=== PATIENT | female | born 1990 | race Caucasian/White ===

== ENCOUNTER 2018-11-07 10:42 | Inpatient (IN) ==
--- NOTE | 2018-11-07 09:46 | P.HPOB ---
History of Present Illness Service: ob Primary Care Physician: UNKNOWN Chief Complaint: elecive primary cd History of Present Illness: 28 yo G1 with iup at 39w5d being admitted for elective primary cd. Discussed risks of vaginal delivery and cd. She is aware that there are increased risks with cd but desires to have primary cd. We have been discussing this throughout third trimester and desires to proceed with primary cd. She has good fm, neg ctx or vb. pnc c/b abn 1 hour, normal 3 hourGTT, Anxiety, Rubella Non-immune. PMH: anxiety PSH: hernia repair, wisdom teeth extraction NKDA FamHx: no genetic d/o or defects : 1 - Inpatient Certification I certify that the inpatient services were ordered in accordance with Medicare regulations governing the order. This includes certification that hospital inpatient services are reasonable and necessary and in the case of services not specified as inpatient-only under 42 CFR 419.22(n), that they are appropriately provided as inpatient services in accordance to with the 2-midnight benchmark under 43 CFR 412.3(e) Plans for Post Hospital Care: Home Review of Systems All other systems reviewed negative except as stated in HPI Exam - Constitutional no acute distress - Routine HEENT Exam Head: Present: normocephalic - Routine Neck Exam Present: full ROM - Routine Respiratory Exam Absent: accessory muscle use - Routine Cardiovascular Exam Present: RRR - Routine Abdominal Exam Present: soft (gravid) - Routine Extremities Exam Absent: cyanosis, clubbing, edema - Routine Neurological Exam Present: alert, oriented X3 Results - Labs Group B Strep: Negative Caprini VTE Risk Assessment Caprini VTE Risk Assessment: No/Low Risk (score <= 1) Caprini Risk Assessment Model: Point Value = 1 Point Value = 2 Point Value = 3 Point Value = 5 Age 41-60 Minor surgery BMI > 25 kg/m2 Swollen legs Varicose veins or History of unexplained or recurrent spontaneous Oral contraceptives or hormone replacement Sepsis (< 1 month) Serious lung disease, including pneumonia (< 1 month) Abnormal pulmonary function Acute myocardial infarction Congestive heart failure (< 1 month) History of inflammatory bowel disease Medical patient at bed rest Age 61-74 Arthroscopic surgery Major open surgery (> 45 min) Laparoscopic surgery (> 45 min) Malignancy Confined to bed (> 72 hours) Immobilizing plaster cast Central venous access Age >= 75 History of VTE Family history of VTE Factor V Leiden Prothrombin [id number] Lupus anticoagulant Anticardiolipin antibodies Elevated serum homocysteine Heparin-induced thrombocytopenia Other congenital or acquired thrombophilia Stroke (< 1 month) Elective arthroplasty Hip, pelvis, or leg fracture Acute spinal cord injury (< 1 month) Prophylaxis Regimen: Total Risk Factor Score Risk Level Prophylaxis Regimen 0-1 Low Early ambulation 2 Moderate Order ONE of the following: *Sequential Compression Device (SCD) *Heparin 5000 units SQ BID 3-4 Higher Order ONE of the following medications: *Heparin 5000 units SQ TID *Enoxaparin/Lovenox 40 mg SQ daily (WT < 150 kg, CrCl > 30 mL/min) *Enoxaparin/Lovenox 30 mg SQ daily (WT < 150 kg, CrCl > 10-29 mL/min) *Enoxaparin/Lovenox 30 mg SQ BID (WT < 150 kg, CrCl > 30 mL/min) AND/OR *Sequential Compression Device (SCD) 5 or more Highest Order ONE of the following medications: *Heparin 5000 units SQ TID (Preferred with Epidurals) *Enoxaparin/Lovenox 40 mg SQ daily (WT < 150 kg, CrCl > 30 mL/min) *Enoxaparin/Lovenox 30 mg SQ daily (WT < 150 kg, CrCl > 10-29 mL/min) *Enoxaparin/Lovenox 30 mg SQ BID (WT < 150 kg, CrCl > 30 mL/min) AND *Sequential Compression Device (SCD) Assessment and Plan - Diagnosis (1) 39 weeks gestation of Code(s): Z3A.39 - 39 weeks gestation of Status: Acute (2) Anxiety Code(s): F41.9 - Anxiety disorder, unspecified Status: Acute - Plan 28 yo G0 with iup at 39w6d here for elective primary cd Consents signed and reviewed in office. GBS neg Anxiety- vistaril Abn 1 hour, normal 3 hr gtt Rubella Non-immune- vaccine pp
[2018-11-07] MEDS ORDERED: ceFAZolin 2 GM Premix Inj 2 GM/50 ML PIGGYBACK IV.SIG PRN (10:54)
[2018-11-07] MEDS ORDERED: Citric Acid/Sodium Citrate Liq 30 ML UDC PO SCH (11:00)
[2018-11-07] MEDS ORDERED: Influenza (Quadrivalent) Vaccine 0.5 ML Syringe IM ONE (11:15)
[2018-11-07 11:19] LABS: Baso # (Auto) 0.1 th/mm3 (0.0-0.2); Baso % (Auto) 0.6 % (0.0-2.0); Eos # (Auto) 0.1 th/mm3 (0.0-0.4); Eos % (Auto) 0.6 % (0.0-4.0); Hematocrit 38.1 % (35.0-46.0); Hemoglobin 13.1 gm/dL (11.6-15.3); Lymph # (Auto) 2.4 th/mm3 (1.0-4.8); Lymph % (Auto) 25.4 % (9.0-44.0); Mean Corpuscular HGB Conc 34.3 % (32.0-36.0); Mean Corpuscular Hemoglobin 30.4 pg (27.0-34.0); Mean Corpuscular Volume 88.7 fL (80.0-100.0); Mean Platelet Volume 8.7 fL (7.0-11.0); Mono # (Auto) 0.7 th/mm3 (0.0-0.9); Mono % (Auto) 7.3 % (0.0-8.0); Neut # (Auto) 6.1 th/mm3 (1.8-7.7); Neut % (Auto) 66.1 % (16.0-70.0); Platelet Count 254 th/mm3 (150-450); Red Cell Distribution Width 14.8 % (11.6-17.2); White Blood Count 9.3 th/mm3 (4.0-11.0)
[2018-11-07 11:24] LABS: Bacteria,Urine Many /hpf; Bilirubin,Urine Negative (Negative); Clarity,Urine Cloudy (Clear); Color,Urine Yellow (Yellw/Straw); Glucose,Urine (UA) Negative (Negative); Leukocyte Esterase,Urine Large (Negative); Mucus,Urine Few /lpf (Occasional); Nitrite,Urine Negative (Negative); Specific Gravity,Urine 1.016 (1.002-1.035); Squamous Epithelial Cell,Urine 35 /hpf (0-5)
[2018-11-07 11:28] LABS: Amphetamine Urine With Conf Neg (Neg); Benzodiazepine Urine With Conf Neg (Neg); Cocaine Urine With Conf Neg (Neg); Opiates Urine With Conf Neg (Neg)
[2018-11-07 11:45] LABS: Cannabinoid Urine With Conf Neg (Neg)
[2018-11-07] MEDS ORDERED: Morphine Sulfate PF Inj 5 MG/10 ML Ampul ONE (11:52)
[2018-11-07] MEDS ORDERED: Zolpidem Tartrate 5 MG Tablet PO PRN (13:23)
[2018-11-07] MEDS ORDERED: Simethicone 80 MG Chew Tablet PO PRN (13:23)
--- NOTE | 2018-11-07 13:31 | P.OBDELI ---
Procedure Note - Pre Op Diagnosis (1) 39 weeks gestation of (2) Anxiety - Post Op Diagnosis (1) 39 weeks gestation of (2) Anxiety Performed by: Shweta Mckeon MD Procedure: Primary Low Transverse Section (vacuum assisted ) Indication for Delivery: Other (elective primary) Informed Consent Obtained: For anesthesia, For procedure Confirmed Correct: Patient, Procedure, Site, Time-out taken Anesthesia: Spinal Medication Prior to Procedure: As documented in eMAR Monitoring During Procedure: Blood pressure monitoring, Pulse oximetry Urinary Catheter: Inserted using sterile technique, To dependent drainage, ml urine output (150) Sterile Preparation: Duraprep, With drapes to expose affected area Position: Supine with wedge to right side, Supine with safety belt applied - Operative Features Uterine Incision: Low transverse w/knife / blunt ext Membranes Ruptured: Artificially, Amount of liquid (copious), Appearance of fluid (cl) Presentation: Compound (left arm, head OT) Status of Infant: Viable, Cord blood, Nursery present Placenta Delivered: Intact Medications: Antibiotics, Oxytocin Estimated blood loss (mL): 900 Procedure Tolerated: Well Maternal Condition: Stable Baby Condition: Stable Procedure in Detail: Indication: Desired primary cd Intraoperative findings: Normal uterus, tubes and ovaries. Nuchal cord x 1 Complications: none Counts: Correct x 3 Specimens: cord blood Dispo: to pac[facility] Procedure in detail: After review of informed consent, pt was taken to the OR where spinal anesthesia was performed w/o complication. She was placed in a dorsal supine position with a slight left lateral tilt. She had enrique placed in sterile fashion. SCDs to bilateral extremities. Preoperative antibiotics given preincision. Abdomen and perineum were prepped and draped in sterile fashion. A Pfannenstiel skin incision was made with the scalpel and carried down to the underlying layer of fascia with the bovie. The fascia was incised in the midline; this incision was extended bilaterally w Ng scissors. The superior edge, followed by the inferior edge, of the fascia was grasped with steve clamps, elevated and from the rectus muscles with ng scissors and bluntly. The rectus muscles were in the midline with the hemostat. Peritoneum was entered bluntly and this incision was extended to allow for good visualization of the lower uterine segment. Bladder blade was inserted. A bladder flap was created with Metzenbaum scissors and further developed digitally. The bladder blade was then replaced. A low transverse uterine incision was made with the scalpel and extended bluntly in a cephalocaudal fashion. Clear amniotic fluid noted. The head was flexed and brought to the level of the hysterotomy. Fundal pressure and vacuum x 1 was used to deliver the head, the rest of the body readily followed with fundal pressure. There was a compound arm and cord around neck was reduced. Viable female . Delayed cord clamping of 30 seconds was performed. Baby was handed off to team. Cord blood was collected. IV infusion of pitocin was started immediately after the delivery of the . The placenta was delivered w gentle cord traction and uterine massage. The uterus was exteriorized. The uterine cavity was cleared with moistened laparotomy sponges. The uterus was repaired in two layers with number 1 chromic in a running locked fashion followed by an imbricating layer. The posterior cul de sac was irrigated and suctioned. The uterus was noted to be hemostatic. It was returned to the abdomen. The anterior cul-de-sac was irrigated and suctioned. The peritoneum was closed with 2-0 chromic in a running fashion. The fascia was closed with number 1 vicryl in a running fashion. Subcutaneous tissue was irrigated and hemostasis obtained w the bovie. The subcutaneous tissue was brought together with 2-0 chromic in a running fashion. The skin was closed with 3-0 monocryl in a subcuticular fashion. A sterile pressure dressing was placed. PT was sent to pacu in stable condition. - Infant : Female Infant Female A Infant Delivery Date: 11/07/18 Infant Delivery Time: 12:25 Weight: 2.835 kg Delivery of : Assisted (vacuum x 1) score (1 min): 8 score (5 min): 9
[2018-11-07] MEDS ORDERED: Oxytocin 30 Units/500ml Premix 30 UNITS/500 ML BAG ONE (13:39)
[2018-11-07] MEDS ORDERED: Oxytocin 30 Units/500ml Premix 30 UNITS/500 ML BAG IV.SIG ONE (14:30)
[2018-11-07] MEDS ORDERED: Naloxone Inj 0.4 MG/ML Vial IV.PUSH PRN (14:51)
[2018-11-07] MEDS ORDERED: Oxytocin 30 Units/500ml Premix 30 UNITS/500 ML BAG IV.SIG PRN (18:23)
[2018-11-08 05:48] LABS: Baso % (Auto) 0.3 % (0.0-2.0); Eos % (Auto) 0.1 % (0.0-4.0); Hematocrit 28.2 % (35.0-46.0); Hemoglobin 9.5 gm/dL (11.6-15.3); Lymph # (Auto) 2.2 th/mm3 (1.0-4.8); Lymph % (Auto) 21.1 % (9.0-44.0); Mean Corpuscular HGB Conc 33.8 % (32.0-36.0); Mean Corpuscular Hemoglobin 29.9 pg (27.0-34.0); Mean Corpuscular Volume 88.5 fL (80.0-100.0); Mean Platelet Volume 8.6 fL (7.0-11.0); Mono # (Auto) 0.9 th/mm3 (0.0-0.9); Mono % (Auto) 8.3 % (0.0-8.0); Neut # (Auto) 7.4 th/mm3 (1.8-7.7); Neut % (Auto) 70.2 % (16.0-70.0); Platelet Count 207 th/mm3 (150-450); Red Blood Count 3.19 mil/mm3 (4.00-5.30); Red Cell Distribution Width 14.7 % (11.6-17.2); White Blood Count 10.6 th/mm3 (4.0-11.0)
[2018-11-08] MEDS ORDERED: Diphtheria/Tetanus/Pertussis Vaccine Inj 0.5 ML Syringe IM ONE (16:00)
[2018-11-08] MEDS ORDERED: Measles/Mumps/Rubella Vaccine Inj 0.5 ML Vial SQ ONE (16:00)
--- NOTE | 2018-11-08 17:25 | P.OBGPN ---
Queried PDMP and reviewed report
--- NOTE | 2018-11-09 07:06 | P.PNOB ---
Subjective Post op day: 2 Interval history: Patient doing well, ambulating without difficulty, voiding spontaneously, vaginal bleeding less than menses, tolerating regular diet no nausea or vomiting , feeling very anxious and has had poor sleep overnight, Objective Vital Signs/I&O: Vital Signs 11/08/18 08:00 11/08/18 20:00 Temperature 98.1 F 98.4 F Pulse Rate 80 101 H Respiratory Rate 18 18 Blood Pressure 100/54 L 110/65 Result Diagrams: 11/08/18 05:10 Objective Remarks: GENERAL: Well-nourished, well-developed patient. CARDIOVASCULAR: Regular rate and rhythm without murmurs, gallops, or rubs. RESPIRATORY: Breath sounds equal bilaterally. No accessory muscle use. ABDOMEN/GI: Abdomen soft, non-tender, bowel sounds present. Incision: Clean, dry and intact. Fundus: Firm, non-tender at umbilicus. GENITOURINARY: Light to moderate bleeding. EXTREMITIES: No cyanosis or edema, non-tender, without signs of DVT. Medications and IVs: Active Medications Citric Acid/Sodium Citrate (Sodium Citrate/Citric Acid Liq) 30 ml PO [employer] [facility] Stop: 11/11/18 10:59 Last Admin: 11/07/18 12:05 Dose: 30 ml Oxytocin (Pitocin 30 Units/Ns 500 Ml Premix) 30 units in 500 mls @ 100 mls/hr IV.SIG UNSCH PRN PRN Reason: Heavy bleeding Ibuprofen (Motrin) 800 mg PO Q8H PRN PRN Reason: CRAMPS Last Admin: 11/09/18 02:26 Dose: 800 mg Ondansetron HCl (Zofran Inj) 4 mg IV.PUSH Q6H PRN PRN Reason: NAUSEA OR VOMITING Oxycodone/Acetaminophen (Percocet 5/325 Mg) 1 tab PO Q4H PRN PRN Reason: PAIN SCALE 3 TO 5 Last Admin: 11/09/18 02:25 Dose: 1 tab Oxycodone/Acetaminophen (Percocet 5/325 Mg) 2 tab PO Q4H PRN PRN Reason: PAIN SCALE 6 TO 10 Simethicone (Mylicon Chew) 80 mg PO QID PRN PRN Reason: FLATULENCE Sodium Chloride (Ns Flush) 2 ml IV.FLUSH BID [facility] Last Admin: 11/09/18 00:28 Dose: Not Given Sodium Chloride (Ns Flush) 2 ml IV.FLUSH UNSCH PRN PRN Reason: FLUSH AFTER USING IV ACCESS Zolpidem Tartrate (Ambien) 5 mg PO HS PRN PRN Reason: INSOMNIA Assessment and Plan - Diagnosis (1) 39 weeks gestation of Code(s): Z3A.39 - 39 weeks gestation of Status: Acute (2) Anxiety Code(s): F41.9 - Anxiety disorder, unspecified Status: Acute - Plan 28-year-old status post scheduled primary low transverse at 39 weeks and 5 days. 1. Postoperative day #2: Afebrile, vital signs stable, postop hemoglobin appropriate, continue routine postoperative and care. Discharge home today. Discussed and postoperative precautions, expectations and follow-up -Reflex urine culture, will follow-up when resulted and treat accordingly -Female . 2. Anxiety/depression: Patient typically well controlled with Zoloft 50 mg and Vistaril at night, has no mental health care provider in the area at this time, will increase her Zoloft to 100 daily, and recommended close follow-up in the office in 1 week.
--- NOTE | 2018-11-09 08:00 | P.DS ---
Date of admission: 11/07/18 10:42 Primary care physician: Kellie Primary Care Physician Brief History from admission: 28-year-old G1 who underwent a scheduled primary low transverse at 39 weeks and 5 days for maternal request was discharged on postoperative day #2. DS: Diagnosis - Discharge Diagnosis (1) 39 weeks gestation of Status: Acute (2) Anxiety Status: Acute DS: Medications - Discharge Medications Prescriptions: ibuprofen 800 mg PO Q8H PRN #30 tab PRN Reason: Cramps oxycodone-acetaminophen 1 tab PO Q4H PRN #15 tab PRN Reason: pain sertraline [Zoloft] 100 mg PO DAILY 30 Days #30 tab DS: Summary Hospital Course: See brief history - Time Spent with Patient Total time spent providing and/or coordinating discharge services: Less than 30 minutes Exam Vital signs: Vital Signs 11/08/18 20:00 Temperature 98.4 F Pulse Rate 101 H Respiratory Rate 18 Blood Pressure 110/65 Results Procedures completed during hospitalization: Primary low transverse Labs on day of discharge: Preliminary micro results at discharge 11/07/18 11:05 Urine Culture - Preliminary Clean Catch Urine Immature growth - reincubate Discharge Plan - Discharge Disposition Patient Disposition: 01 Discharge Home - Discharge Condition Condition: Good - Discharge Order Discharge Orders: Discharge Order (Routine); Ordered 11/09/18 Ordered By: Larry Mcintyre - Physicians Team Primary Care Provider: Primary Kellie Prather Attending Provider: Shweta Mckeon - Rxs /Orders / Referrals /Forms Prescriptions: New ibuprofen 800 mg Tablet 800 mg PO Q8H PRN (Reason: Cramps) Qty: 30 RF: 1 oxycodone-acetaminophen 5-325 mg Tablet 1 tab PO Q4H PRN (Reason: pain) Qty: 15 RF: 0 sertraline [Zoloft] 100 mg Tablet 100 mg PO DAILY 30 Days Qty: 30 RF: 2 Discontinued sertraline [Zoloft] 50 mg Tablet 50 mg PO DAILY Referrals: Primary Care Kellie Ramirez [Primary Care Provider] - See Instructions - Discharge Instructions Patient Printed Instructions: (DC) - Post Discharge Care Plan Care Plan Goals: Discharge Care Plan Goals After Section Congratulations on your new baby! We want your recovery to be campbell and trouble free. You had a section, or . During the , your baby was delivered through an incision in your abdomen and uterus. Full recovery after a can take time. Its important to take care of yourself for your own sake and because your new baby needs you. Here are some guidelines to follow at home. Incision care: Here's how to take care of your incision: * Shower as needed. Pat your incision dry. * Watch your incision for signs of infection, like more redness or drainage. * Hold a pillow against the incision when you laugh or cough and when you get up from a lying or sitting position. * Remember, it can take as long as 6 weeks for your incision to heal. Diet and Activity: Here are some suggestions: * Dont try to take care of anyone other than your baby and yourself. * Remember, the more active you are, the more likely you are to have an increase in your bleeding. * Get lots of rest. Take naps when the is napping. * Increase your activities bit by bit. * Plan your activities so that you dont have to go up or down stairs more than needed. * Do postsurgical deep breathing and coughing exercises. Follow your physician' s instructions. * Dont lift anything heavier than your baby until your physician tells you it s OK. * Dont drive when you are on pain medications. * Dont have sexual intercourse until after youve had a checkup with your physician and you have decided on a control method. * Allow others to do things for you. Don't hesitate to ask for help. If you are : * Ask before you take any medicine. * If you leak milk, it will help to nurse right before the activity. * Talk to your healthcare provider about alcohol, if you choose to drink. * When youre sick, check with your physician if the medications would impact the breast feeding * Ask your physician before taking any prescription or over-the- counter medicines, herbs, or supplements. * Ask your physician what to use for prevention while you are nursing. Balancing the Blues: Recognize your need to talk, to feel protected, to have private time. Allow yourself to cry, to sit, to think. Ask for help when you need it, and accept help when its offered. Knowing your needs is not a weakness. Share your thoughts with your partner. Or orange picker machine operator the phone and call a friend, your mother , a sister, or an aunt. Rest, eat right, and get some light exercise. The mind feels best when the body feels good. When to Call your Physician: * Fever of 100.5F or higher. * Redness, pain, or drainage at your incision site * Bleeding that requires a new sanitary pad every hour * Severe pain in the abdomen * Pain or urgency with urination * Foul odor from vaginal discharge * Trouble urinating or emptying your bladder * No bowel movement within 1 week after the of your baby * Swollen, red, painful area in the calf/leg * Appearance of rash or hives * Sore, red, painful area on the breasts that may come with flu-like symptoms * Feelings of anxiety, panic, and/or depression Signs of Depression include: You dont want to be with the baby. Your symptoms are not getting better, and youre getting more upset. You have no interest in eating or are not able to sleep. You think you may harm yourself or the baby. The Depression After Delivery hotline (106-912-0026) may also be helpful. Follow-Up: * Keep your appointments as scheduled. * If your symptoms worsen call your OB Physician, or go to an Urgent Care Center or Emergency Room. * Smoking is Dangerous to your health. Avoid second hand smoke. * Call the 24-hour crisis hotline for domestic abuse at Call 911: Call 911 right away if you have: * Sudden onset of chest pain that is not relieved by medications. * Shortness of breath * Severe Depression /Thoughts of harm to self and others
== END 2018-11-09 12:01 | disposition home or self-care (01) ==
LOC: H2E 10:42 → H1EA 14:39
PROVIDERS: ADMIT Obstetrics & Gynecology; ATTEND Obstetrics & Gynecology